=== PATIENT | female | born 1980 | race Caucasian/White ===

== ENCOUNTER 2016-11-02 10:28 | Emergency (ER) | payer OTHER ==
[~2016-11-02] VITALS: Ht 177.8 cm; Wt 136.7 kg
[~2016-11-02 10:28] MED LIST: CARB1CAP10 PO; CARB200T PO; CITA10TA8 PO; CLON1TAB3 PO; LISI-461 PO; METF500T5 PO; PRLSR20 PO; QUET1TAB32 PO; ZNTT/150 PO
[2016-11-02 10:35] VITALS: TEMP 37; Ht 177.8 cm; Wt 136.7 kg
--- NOTE | 2016-11-02 11:56 | DIAGNOSTIC IMAGING REPORT ---
CHEST 2 VIEWS ROUTINE CLINICAL HISTORY: cough eval for pnea cough. Dyspnea. COMPARISON STUDY: 12/12/2015 FINDINGS: Small parenchymal infiltrate versus atelectasis right midlung. Lungs otherwise appear clear. Diaphragms smooth. IMPRESSION: Subsegmental atelectasis versus a very small focal infiltrate right midlung. This chest film should be repeated later date to ensure complete resolution Electronically signed by: Edi Givens M.D. 11/02/2016 11:55 AM Dictated Date/Time: 11/02/2016 11:54 AM
[2016-11-02] MEDS ORDERED: DOXY100C2 PO (12:16)
[2016-11-02] MEDS ORDERED: BENZ100C84 PO (12:16)
[2016-11-02 12:24] VITALS: BP 128/78; PULSE 88; O2SAT 97
--- NOTE | 2016-11-02 16:27 | EMERGENCY ROOM VISIT NOTE ---
History Report prepared by Harpreet: Reji Osorio Under the Supervision of: Dr. Lee Murillo M.D. First contact with patient: 10:54 Chief Complaint: COUGH Stated Complaint: COUGH X 2 DAYS Nursing Triage Summary: cough for two days. History of Present Illness The patient is a 36 year old female who presents to the Emergency Room with complaints of a persistent illness that started 2 and a half days ago. She states that she is spitting up mucous and has a cough. The patient says she has sinus congestion and her nose is starting to run. She denies any fevers, chest pain, or shortness of breath. The patient did not take her hypertension medication today. She says that she has no chance of . The patient notes that her mother is sick, and the patient thinks that she initially got her mother sick, and now her mother has gotten the patient sick again. She does smoke cigarettes. Source of History: patient Onset: 2 and a half days Position: other (global - illness) Timing: other (persistent) Associated Symptoms: + cough, No SOB, No chest pain, No fevers Note: Associated symptoms: Spitting up mucous. Runny nose, sinus congestion. Review of Systems See HPI for pertinent positives & negatives. A total of 10 systems reviewed and were otherwise negative. Past Medical & Surgical Medical Problems: (1) Anxiety State Nos (2) Asthma W/O Status Asthm (3) Asthma, Unspecified (4) Bipolar Disorder, Unspecified (5) Depressive Disorder Nec (6) Drug Abuse Nec-Contin (7) Fem Pelvic Periton Adh-Post-Op/Inf (8) Morbid Obesity (9) Ovarian Cyst Nec/Nos (10) Suicide-Drug/Medicin Nec (11) Tobacco Use Disorder Social History Problems: (1) Suicide/Self-Injury Nos Family History Blood clots Social History Smoking Status: Current Every Day Smoker Alcohol Use: none Drug Use: none Marital Status: single Occupation Status: unemployed Current/Historical Medications Scheduled Carbamazepine (Tegretol), 200 MG PO QAM Carbamazepine Extended Release (Tegretol Xr), 100 MG PO QPM Citalopram Hydrobromide (Celexa), 10 MG PO QAM Clonazepam (Klonopin), 1 MG PO TID Doxycycline Hyclate (Vibramycin), 100 MG PO BID Lisinopril (Zestril), 10 MG PO QAM Metformin Hcl Er (Glucophage Er), 500 MG PO QAM Omeprazole (Prilosec), 20 MG PO HS Quetiapine Fumarate (Seroquel), 50 MG PO HS Ranitidine (Zantac), 150 MG PO BID Scheduled PRN Benzonatate (Tessalon Perles), 200 MG PO Q8 PRN for Cough Allergies Coded Allergies: Adhesives (Verified Allergy, Unknown, RASH, 11/02/16) Lorazepam (Verified Adverse Reaction, Mild, HALLUCINATIONS, 11/02/16) Diclofenac (Unverified Adverse Reaction, Unknown, heartburn, 11/02/16) Physical Exam Vital Signs Date Time Temp Pulse Resp B/P Pulse Ox O2 Delivery O2 Flow Rate FiO2 11/02/16 12:24 88 20 128/78 97 11/02/16 10:52 97 Room Air 11/02/16 10:35 37.0 95 20 159/113 97 Room Air Physical Exam Constitutional: Vital signs reviewed. Eyes: Pupils are equal round reactive to light. Conjunctiva are noninjected. ENT: Pharynx is clear without erythema or exudate. Mucous membranes are moist. Neck supple without meningeal signs. Respiratory: Clear to auscultation bilaterally. Breath sounds are equal bilaterally. Coughing. Cardiovascular: Regular rate and rhythm. No rubs or gallops. GI: Soft, nondistended and nontender. Bowel sounds are present. Musculoskeletal: No peripheral edema. No lower extremity tenderness. Integumentary: No cyanosis. Neurological: The patient is awake and alert. No focal deficits. Psychiatric: Normal affect. Medical Decision & Procedures ER Provider Diagnostic Interpretation: X-ray results as stated below per interpretation by me and the radiologist: CHEST 2 VIEWS ROUTINE CLINICAL HISTORY: cough eval for pnea cough. Dyspnea. COMPARISON STUDY: 12/12/2015 FINDINGS: Small parenchymal infiltrate versus atelectasis right midlung. Lungs otherwise appear clear. Diaphragms smooth. IMPRESSION: Subsegmental atelectasis versus a very small focal infiltrate right midlung. This chest film should be repeated later date to ensure complete resolution Electronically signed by: Edi Givens M.D. 11/02/2016 11:55 AM Dictated Date/Time: 11/02/2016 11:54 AM ED Course 1056: The patient was evaluated in room B8. A complete history and physical exam was performed. 1213: I reevaluated the patient and she is resting comfortably. I discussed the test results with her. The patient verbally expressed understanding and agreement of the treatment plan. The patient will be discharged. Medical Decision This is a 36-year-old female who presents with cough. Differential diagnosis includes URI, bronchitis, pneumonia. I did perform a limited focused review of portions of the patient's old chart on the electronic medical record. The patient has had no recent pertinent visits to this hospital. I did evaluate the patient as noted above. The patient is hypertensive but she states she did not take her medications today. She will take them when she gets home. I did order and personally review the patient's chest x-ray as described above. She does have a potential infiltrate versus atelectasis in the right upper lobe. The patient is a smoker and has complained of productive cough with fever. I did therefore recommend antibiotic treatment. I did discuss the test results with her. She was given a prescription for Tessalon Perles and doxycycline. She was advised follow up with her doctor. Impression Primary Impression: Pneumonia involving right lung Additional Impression: Hypertension Scribe Attestation The scribe's documentation has been prepared under my direct and personally reviewed by me in its entirety. I confirm that the note above accurately reflects all work, treatment, procedures, and medical decision making performed by me. Departure Information Dispostion Home / Self-Care Prescriptions Benzonatate (Tessalon Perles) 100 Mg Cap 200 MG PO Q8 Y for Cough, #20 CAP Prov: Lee Murillo M.D. 11/02/16 Doxycycline Hyclate (VIBRAMYCIN) 100 Mg Cap 100 MG PO BID for 10 Days, #20 CAP Prov: Lee Murillo M.D. 11/02/16 Referrals Dwight Obando M.D. (MEDICAL) (PCP) Forms HOME CARE DOCUMENTATION FORM, IMPORTANT VISIT INFORMATION, Work Instructions Patient Instructions My [facility], Pneumonia Dc Additional Instructions You have been examined and treated today on an emergency basis only. This is not a substitute for, or an effort to provide, complete comprehensive medical care. It is impossible to recognize and treat all injuries or illnesses in a single emergency department visit. It is therefore important that you follow up closely with your physician. Call as soon as possible for an appointment. Return for worsening symptoms or if you develop fever, vomiting, chest pain, shortness of breath or any other concerning symptoms. Problem Qualifiers Primary Impression: Pneumonia involving right lung Pneumonia type: due to unspecified organism Lung location: middle lobe of lung Qualified Codes: J18.1 - Lobar pneumonia, unspecified organism Additional Impression:
== END 2016-11-02 12:26 | disposition home or self-care (01) ==
LOC: C.EDB 10:29
DX: J18.1 Lobar pneumonia, unspecified organism (principal); F17.200 Nicotine dependence, unspecified, uncomplicated; F41.9 Anxiety disorder, unspecified; J45.909 Unspecified asthma, uncomplicated; F31.9 Bipolar disorder, unspecified

== ENCOUNTER → 2016-11-18 | Day surgery (SDC) | payer OTHER ==
[2016-10-31 12:53] VITALS: BMI 44.0
[2016-11-11 07:45] VITALS: Ht 175.3 cm; Wt 137.3 kg
[~2016-11-18] VITALS: Ht 175.3 cm; Wt 137.3 kg
[~2016-11-18] MED LIST changes: +BENZ100C84 PO; +DOXY100C2 PO; +LIDOCAINE HCL 2% 2 ML VIAL (20MG/ML) ONE; +MIDAZOLAM HCL 1 MG/ML 2ML VIAL ONE; +PROPOFOL IV EMULSION 10 MG/ML 20 ML VIAL IV ONE; +SODIUM CHLORIDE 0.9% 500ML 500 ML IV ONE
--- NOTE | 2016-11-18 11:08 | Endo History and Physical ---
History & Physical Date of Service: Nov 18, 2016. Chief Complaint: gastritis,esophagitis Referring Physician: Dr. Matt Obando History of Present Illness Epigastric pain, heartburn; incomplete relief from PPI Past Medical History Diabetes, Arthritis, Anxiety, Reflux, Hypertension, Depression Past Surgical History Hx Cardiac Surgery: No Hx Internal Defibrillator: No Hx Pacemaker: No Hx Abdominal Surgery: Yes (OVARIAN CYST REMOVAL) Hx of Implantable Prosthesis: No Hx Post-Op Nausea and Vomiting: No Hx Cancer Surgery: No Hx Thoracic Surgery: No Hx Orthopedic: Yes (L KNEE SCOPE/SURG X 5,RT FOOT HAMMERTOES, RT SHOULER ARTHROSCOPY) Hx Urinary Tract Surgery: No Family History IBD Social History Smoking Status: Current Every Day Smoker Hx Substance Use: No Hx Alcohol Use: Yes Allergies Coded Allergies: Adhesives (Verified Allergy, Unknown, RASH, 11/02/16) Lorazepam (Verified Adverse Reaction, Mild, HALLUCINATIONS, 11/02/16) Diclofenac (Verified Adverse Reaction, Unknown, heartburn, 11/18/16) Current Medications Reported Home Medications Medications Dose Route/Sig Max Daily Dose Days Date Category Tessalon Perles (Benzonatate) 100 Mg Cap 200 Mg PO Q8 PRN 11/02/16 Rx Prilosec (Omeprazole) 20 Mg Capcr 20 Mg PO HS 10/31/16 Reported Zantac (Ranitidine HCl) 150 Mg Tab 150 Mg PO BID 10/31/16 Reported Celexa (Citalopram Hydrobromide) 10 Mg Tab 10 Mg PO QAM 12/12/15 Reported Tegretol Xr (Carbamazepine) 100 Mg Tabcr 100 Mg PO QPM 12/12/15 Reported Tegretol (Carbamazepine) 200 Mg Tab 200 Mg PO QAM 12/12/15 Reported Seroquel (Quetiapine Fumarate) 50 Mg Tab 50 Mg PO HS 12/12/15 Reported Glucophage Er (Metformin HCl) 500 Mg Tab 500 Mg PO QAM 12/12/15 Reported Klonopin (Clonazepam) 1 Mg Tab 1 Mg PO TID 01/16/14 Reported Zestril (Lisinopril) 10 Mg Tab 10 Mg PO QAM 01/16/14 Reported Vital Signs Weight (Kilograms): 137.27 Height (Feet): 5 Height (Inches): 9 Date Time Temp Pulse Resp B/P Pulse Ox O2 Delivery O2 Flow Rate FiO2 11/18/16 10:45 36.7 94 20 161/87 99 Room Air Physical Exam General Appearance: WD/WN, no apparent distress, + obese Respiratory/Chest: Auscultation: breath sounds normal, no wheezing Cardiovascular: Heart Auscultation: RRR, no murmurs Abdomen: Inspection & Palpation: soft, no tenderness, guarding & rebound Assessment and Plan EGD today.
--- NOTE | 2016-11-18 11:40 | GI REPORT ---
Procedure Date: 11/18/2016 11:06 AM Procedure: Upper GI endoscopy Indications: Heartburn Medicines: Monitored Anesthesia Care Complications: No immediate complications. Estimated blood loss: None. Estimated Blood Loss: Estimated blood loss: none. Procedure: Pre-Anesthesia Assessment: - Prior to the procedure, a History and Physical was performed, and patient medications, allergies and sensitivities were reviewed. The patient's tolerance of previous anesthesia was reviewed. - ASA Grade Assessment: III - A patient with severe systemic disease. After obtaining informed consent, the endoscope was passed under direct vision. Throughout the procedure, the patient's blood pressure, pulse, and oxygen saturations were monitored continuously. The scope was introduced through the mouth, and advanced to the third part of duodenum. The upper GI endoscopy was accomplished with ease. The patient tolerated the procedure well. Findings: The upper third of the esophagus, middle third of the esophagus and lower third of the esophagus were normal. The Z-line was regular and was found 42 cm from the incisors. Biopsies were taken with a cold forceps for histology. The entire examined stomach was normal. Biopsies were taken with a cold forceps for Helicobacter pylori testing. The examined duodenum was normal. Verification of patient identification for the specimens was done by the physician and nurse using the patient's name, date and medical record number. Impression: - Normal upper third of esophagus, middle third of esophagus and lower third of esophagus. - Z-line regular, 42 cm from the incisors. Biopsied. - Normal stomach. Biopsied. - Normal examined duodenum. Recommendation: - Await pathology results. - Discharge patient to home (with escort). Patric Lo M.D. Patric Lo MD 11/18/2016 11:40:20 AM This report has been signed electronically. Note Initiated On: 11/18/2016 11:06 AM I attest to the content of the Intraoperative Record and orders documented therein, exceptions below
--- NOTE | 2016-11-18 11:40 | Discharge Instructions ---
Endoscopy Patient Instructions Date / Procedure(s) Performed Nov 18, 2016. EGD Allergy Information Coded Allergies: Adhesives (Verified Allergy, Unknown, RASH, 11/02/16) Lorazepam (Verified Adverse Reaction, Mild, HALLUCINATIONS, 11/02/16) Diclofenac (Verified Adverse Reaction, Unknown, heartburn, 11/18/16) Discharge Date / Findings Nov 18, 2016. Normal endoscopic examination, biopsies pending. Medication Instructions Restart Stopped Medication(s): Restart all medications today. Provider Instructions Activity Restrictions - No exercising or heavy lifting for 24 hours. - Do not drink alcohol the day of the procedure. - Do not drive a car or operate machinery until the day after the procedure. - Do not make any important decisions or sign important papers in 24 hours after the procedure. Following Day: - Return to full activity which may include returning to work/school. Diet Start your diet with liquids and light foods (jello, soup, juice, toast). Then eat your usual diet if not nauseated. Treatment For Common After Affects For mild abdominal pain, bloating, or excessive gas: - Rest - Eat lightly - Lie on right side Follow-Up Information Follow-up with Dr. Matt Obando as scheduled Anesthesia Information What You Should Know You have had a procedure that required some medicine to reduce anxiety and discomfort. This treatment is called moderate sedation. After receiving the treatment, you may be sleepy, but you will be able to breathe on your own. The effects of the treatment may last for several hours. Follow these instructions along with Activity/Diet recommendations noted above: * Do NOT do anything where dizziness or clumsiness would be dangerous. * Rest quietly at home today, then you can be up and about tomorrow. * Have a responsible person stay with you the rest of today. * You may have had an I.V. today. If so, you may take the dressing off later today. Recommendations Call your doctor if: * Trouble breathing * Continuous vomiting for more than 24 hours * Temperature above 101 degrees * Severe abdominal pain or bloating * Pain not relieved by pain medicine ordered * There is increased drainage or redness from any incision * A large amount of rectal bleeding greater than 2-3 tablespoons. (If you had a polyp/s removed or have hemorrhoids, a small amount of blood - from the rectum is to be expected.) * You have any unanswered questions or concerns. IN THE EVENT OF A SERIOUS EMERGENCY, GO TO THE NEAREST EMERGENCY ROOM Your discharge instructions were prepared by provider Patric Lo. Patient Instructions Signature Page Geno Nielsen Patient (or Guardian) Signature/Date: I have read and understand the instructions given to me by my caregivers. Caregiver/RN/Doctor Signature/Date: The above-named patient and/or guardian has received patient instructions on this date. + Original Patient Signature Page (only) stays with chart. Please make copy for patient.
[2016-11-18 11:48] VITALS: BP 133/90; PULSE 83; O2SAT 98
--- NOTE | 2016-11-18 14:34 | Anesthesiology Progress Note ---
Anesthesia Post Op Note Date & Time Nov 18, 2016 at 14:34 Vital Signs Pain Intensity: 0 Vital Signs Past 12 Hours Date Time Temp Pulse Resp B/P Pulse Ox O2 Delivery O2 Flow Rate FiO2 11/18/16 11:48 83 20 133/90 98 Room Air 11/18/16 11:34 94 20 133/84 98 Room Air 11/18/16 10:45 36.7 94 20 161/87 99 Room Air Notes Mental Status: alert / awake / arousable, participated in evaluation Pt Amnestic to Procedure: Yes Nausea / Vomiting: adequately controlled Pain: adequately controlled Airway Patency, RR, SpO2: stable & adequate BP & HR: stable & adequate Hydration State: stable & adequate Anesthetic Complications: no major complications apparent
== END | disposition home or self-care (01) ==
LOC: C.GI 10:14
PROVIDERS: ATTEND Internal Medicine Gastroenterology
DX: K29.50 Unspecified chronic gastritis without bleeding (principal); K20.9 Esophagitis, unspecified; E66.01 Morbid (severe) obesity due to excess calories; E11.9 Type 2 diabetes mellitus without complications; I10 Essential (primary) hypertension; M19.90 Unspecified osteoarthritis, unspecified site; F31.9 Bipolar disorder, unspecified; F41.9 Anxiety disorder, unspecified; F17.200 Nicotine dependence, unspecified, uncomplicated; Z98.890 Other specified postprocedural states; Z68.42 Body mass index [BMI] 45.0-49.9, adult

== ENCOUNTER 2017-06-21 12:08 | Emergency (ER) | payer OTHER ==
[~2017-06-21] VITALS: Ht 177.8 cm; Wt 133.5 kg
[~2017-06-21 12:08] MED LIST changes: -BENZ100C84 PO; -DOXY100C2 PO; -LIDOCAINE HCL 2% 2 ML VIAL (20MG/ML) ONE; -MIDAZOLAM HCL 1 MG/ML 2ML VIAL ONE; -PROPOFOL IV EMULSION 10 MG/ML 20 ML VIAL IV ONE; -SODIUM CHLORIDE 0.9% 500ML 500 ML IV ONE
[2017-06-21 12:30] VITALS: TEMP 36.9; Ht 177.8 cm; Wt 133.5 kg
[2017-06-21] MEDS ORDERED: ALBUT/IPRATROP 3MG/0.5MG NEB 3 ML VIAL INH STA (13:00)
[2017-06-21] MEDS ORDERED: BENZONATATE 100MG CAP PO ONE (13:00)
[2017-06-21] MEDS ORDERED: IBUPROFEN 600 MG TAB PO STA (13:00)
[2017-06-21] MEDS ORDERED: ACETAMINOPHEN 500 MG TAB PO STA (13:00)
--- NOTE | 2017-06-21 13:23 | EMERGENCY ROOM VISIT NOTE ---
History Report prepared by Harpreet: Kendrick Burnett Under the Supervision of: Dr. Jose De La Torre M.D. First contact with patient: 12:53 Chief Complaint: COUGH Stated Complaint: COUGH, SORE THROAT, SOB History of Present Illness The patient is a 36 year old female who presents to the Emergency Room with complaints of a worsening cough that began four days ago. She states that at this time she was spending the night with her ex-boyfriend when he coughed straight onto her face. Since then, her symptoms have worsened. She is experiencing intermittent sputum production, a sore throat, and shortness of breath. She denies any fevers, congestion, or rhinorrhea. She denies any history of asthma or COPD. She was diagnosed with pneumonia earlier this year. Source of History: patient Onset: four days ago Position: other (Respiratory system) Symptom Intensity: moderate Quality: other (Cough) Timing: worsening Associated Symptoms: + sorethroat, + SOB, No fevers Note: She denies any congestion or rhinorrhea. Review of Systems See HPI for pertinent positives & negatives. A total of 10 systems reviewed and were otherwise negative. Past Medical & Surgical Medical Problems: (1) Anxiety State Nos (2) Asthma W/O Status Asthm (3) Asthma, Unspecified (4) Bipolar Disorder, Unspecified (5) Depressive Disorder Nec (6) Drug Abuse Nec-Contin (7) Fem Pelvic Periton Adh-Post-Op/Inf (8) Morbid Obesity (9) Ovarian Cyst Nec/Nos (10) Suicide-Drug/Medicin Nec (11) Tobacco Use Disorder Social History Problems: (1) Suicide/Self-Injury Nos Family History Blood clots Social History Smoking Status: Never Smoker Alcohol Use: none Drug Use: none Marital Status: single Occupation Status: unemployed Current/Historical Medications Scheduled Albuterol Hfa (Ventolin Hfa), 3 PUFFS INH Q6H Benzonatate (Tessalon Perles), 1 CAP PO TID Carbamazepine (Tegretol), 200 MG PO QAM Carbamazepine Extended Release (Tegretol Xr), 100 MG PO QPM Citalopram Hydrobromide (Celexa), 10 MG PO QAM Clonazepam (Klonopin), 1 MG PO HS Lisinopril (Zestril), 10 MG PO QAM Metformin Hcl Er (Glucophage Er), 500 MG PO QAM Omeprazole (Prilosec), 20 MG PO HS Prednisone (Prednisone), 0 PO DAILY Quetiapine Fumarate (Seroquel), 50 MG PO HS Ranitidine (Zantac), 150 MG PO BID Allergies Coded Allergies: Adhesives (Verified Allergy, Unknown, RASH, 06/21/17) Lorazepam (Verified Adverse Reaction, Mild, HALLUCINATIONS, 06/21/17) Diclofenac (Verified Adverse Reaction, Unknown, heartburn, 06/21/17) Physical Exam Vital Signs Date Time Temp Pulse Resp B/P (MAP) Pulse Ox O2 Delivery O2 Flow Rate FiO2 06/21/17 14:42 112 16 164/94 95 06/21/17 14:08 112 16 95 Room Air 06/21/17 13:15 93 Room Air 06/21/17 12:30 36.9 112 22 166/93 96 Room Air Physical Exam GENERAL: Patient is in no acute distress. HEENT: No acute trauma, normocephalic atraumatic, mucous membranes moist, no nasal congestion, no scleral icterus. No throat erythema or exudate. NECK: No stridor, no adenopathy, no meningismus, trachea is midline. LUNGS: Decreased breath sounds bilaterally. Sounds are equal bilaterally. Wheezing bilaterally with auscultation. Dry cough noted. HEART: Without murmurs gallops or rubs, regular rate and rhythm. ABDOMEN: Soft, nontender, bowel sounds positive, no hernias, no peritonitis. EXTREMITIES: No cyanosis or edema, full range of motion of all the joints without pain or difficulty, no signs for acute trauma. NEUROLOGIC: Oriented x 3, no acute motor or sensory deficits, no focal weakness. SKIN: No rash, no jaundice, no diaphoresis. Medical Decision & Procedures ER Provider Diagnostic Interpretation: Radiology results as stated below per my review and radiologist interpretation: CHEST ONE VIEW PORTABLE CLINICAL HISTORY: Cough, shortness of breath, sore throat. COMPARISON STUDY: 11/02/2016 FINDINGS: The cardiac and mediastinal contours are normal. There is no evidence of focal pulmonary consolidation. There is no evidence of failure. No pleural effusions are visualized.[ The previous identified right midlung zone opacity has resolved IMPRESSION: No active disease in the chest. Electronically signed by: Jacky Wheat M.D. 06/21/2017 1:23 PM Dictated Date/Time: 06/21/2017 1:23 PM Medications Administered Medications (Trade) Dose Ordered Sig/Tu Route Start Time Stop Time Status Last Admin Dose Admin Benzonatate (Tessalon Perles Cap) 100 mg NOW ONCE PO 06/21/17 13:00 06/21/17 13:03 DC 06/21/17 13:12 100 MG Albuterol/ Ipratropium (Duoneb) 3 ml NOW STAT INH 06/21/17 13:00 06/21/17 13:03 DC 06/21/17 13:13 3 ML Prednisone (PredniSONE TAB) 60 mg NOW STAT PO 06/21/17 13:00 06/21/17 13:03 DC 06/21/17 13:12 60 MG Ibuprofen (Motrin Tab) 600 mg NOW STAT PO 06/21/17 13:00 06/21/17 13:03 DC 06/21/17 13:13 600 MG Acetaminophen (Tylenol Tab) 1,000 mg NOW STAT PO 06/21/17 13:00 06/21/17 13:03 DC 06/21/17 13:12 1,000 MG Albuterol (Ventolin Hfa Inhaler) 2 puffs NOW ONCE INH 06/21/17 13:45 06/21/17 13:46 DC 06/21/17 13:45 2 PUFFS ED Course 1253: The patient was evaluated in room A4. A complete history and physical exam was performed. 1300: Ordered Tylenol Tab 1000 mg PO, Motrin Tab 600 mg PO, Prednisone Tab 60 mg PO, DuoNeb 3 ml INH, Benzonatate 100 mg PO 1345: Ordered Albuterol 2 puffs INH 1410: Reevaluated the patient. Discussed results and discharge instructions: She verbalized understanding and agreement. The patient is ready for discharge. Medical Decision Differential diagnosis includes but is not limited to bronchitis, pneumonia, pneumothorax, viral illness, heart failure, and sinusitis. The patient presents with a cough and some wheezing. On exam, she appeared to have at least a bronchitis, possibly a pneumonia. A chest film was done, no pneumonia was seen, no pneumothorax or CHF. The patient was not hypoxic or toxic upon arrival. Patient was given a DuoNeb, oral Tylenol, oral Motrin, a Tessalon Perle, oral prednisone. She received albuterol via [facility]. The patient has an acute bronchitis. She is being discharged on prednisone and albuterol, Tessalon Perles for cough. If worsening, she can return. She was stable for discharge home. Medication Reconcilliation Current Medication List: was personally reviewed by me Blood Pressure Screening Patient's blood pressure: Elevated blood pressure Blood pressure disposition: Referred to PCP Impression Primary Impression: Acute bronchitis Additional Impression: Cough Scribe Attestation The scribe's documentation has been prepared under my direction and personally reviewed by me in its entirety. I confirm that the note above accurately reflects all work, treatment, procedures, and medical decision making performed by me. Departure Information Dispostion Home / Self-Care Prescriptions Benzonatate (Tessalon Perles) 100 Mg Cap 1 CAP PO TID for 10 Days, #30 CAP Prov: Jose De La Torre M.D. 06/21/17 Albuterol Hfa (VENTOLIN HFA) 200 Puffs/31408 Mcg Aers 3 PUFFS INH Q6H, #1 INHALER Prov: Jose De La Torre M.D. 06/21/17 Prednisone (Prednisone) 20 Mg Tab 0 PO DAILY, #14 TAB 3 TABS DAILY FOR 2 DAYS, THEN 2 TABS DAILY FOR 2 DAYS, THEN 1 TAB DAILY FOR 2 DAYS, THEN 1/2 TAB DAILY FOR 2 DAYS. Prov: Jose De La Torre M.D. 06/21/17 Referrals Dwight Obando M.D. (MEDICAL) (PCP) Forms HOME CARE DOCUMENTATION FORM, IMPORTANT VISIT INFORMATION Patient Instructions My [facility] Additional Instructions tessalon perles 1 tab 3x per day for cough albuterol 3 puffs every 4 hours fluids rest prednisone as directed return if worsening see meri jacinto this week for a recheck Problem Qualifiers Primary Impression: Acute bronchitis Bronchitis organism: unspecified organism Qualified Codes: J20.9 - Acute bronchitis, unspecified
[2017-06-21] MEDS ORDERED: ALBUTEROL HFA 8 GM INHALER INH ONE (13:45)
[2017-06-21] MEDS ORDERED: VNTHFA/IN INH (14:18)
[2017-06-21] MEDS ORDERED: BENZ100C84 PO (14:18)
[2017-06-21] MEDS ORDERED: PRED20TA PO (14:18)
[2017-06-21 14:42] VITALS: BP 164/94; PULSE 112; O2SAT 95
== END 2017-06-21 14:43 | disposition home or self-care (01) ==
LOC: C.EDB 12:09 → C.EDA 14:43
DX: J20.9 Acute bronchitis, unspecified (principal); R05 Cough; F41.9 Anxiety disorder, unspecified; J45.909 Unspecified asthma, uncomplicated; F31.9 Bipolar disorder, unspecified; F32.9 Major depressive disorder, single episode, unspecified; E66.01 Morbid (severe) obesity due to excess calories; N83.209 Unspecified ovarian cyst, unspecified side; F17.200 Nicotine dependence, unspecified, uncomplicated; Z91.5 Personal history of self-harm; Z83.2 Family history of diseases of the blood and blood-forming organs and certain disorders involving the immune mechanism

== ENCOUNTER 2017-12-23 10:06 | Emergency (ER) | payer OTHER ==
[~2017-12-23] VITALS: Ht 176.5 cm; Wt 130.7 kg
[~2017-12-23 10:06] MED LIST changes: +RANI150T85 PO; -ZNTT/150 PO
[2017-12-23 10:16] VITALS: TEMP 36.6; Ht 176.5 cm; Wt 130.7 kg
[2017-12-23] MEDS ORDERED: IBUPROFEN 600 MG TAB PO STA (10:41)
[2017-12-23] MEDS ORDERED: CARB100C2 PO (11:47)
--- NOTE | 2017-12-23 11:51 | DIAGNOSTIC IMAGING REPORT ---
LEFT KNEE 3 VIEWS CLINICAL HISTORY: Fall with left knee pain. FINDINGS: AP, crosstable lateral, and sunrise views of the left knee are compared to study dated 06/17/2013. The skeletal structures are well mineralized. No fracture is seen. The joint spaces are maintained. Screw tracts are noted in the proximal tibia. Prepatellar soft tissue swelling is noted. A small joint effusion is identified. IMPRESSION: Soft tissue swelling and small joint effusion. There is no radiographic evidence of left knee fracture. Electronically signed by: Jose De Santiago M.D. 12/23/2017 11:49 AM Dictated Date/Time: 12/23/2017 11:48 AM
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
[2017-12-23 12:20] VITALS: BP 153/99; PULSE 86; O2SAT 98
== END 2017-12-23 12:20 | disposition home or self-care (01) ==
LOC: C.EDB 10:07
DX: M25.562 Pain in left knee (principal); W17.89XA Other fall from one level to another, initial encounter; Y93.01 Activity, walking, marching and hiking; Y99.8 Other external cause status; F17.200 Nicotine dependence, unspecified, uncomplicated; J45.909 Unspecified asthma, uncomplicated; E11.9 Type 2 diabetes mellitus without complications; I10 Essential (primary) hypertension; F31.9 Bipolar disorder, unspecified; K21.9 Gastro-esophageal reflux disease without esophagitis; Z87.01 Personal history of pneumonia (recurrent); Z98.890 Other specified postprocedural states; Z91.09 Other allergy status, other than to drugs and biological substances; Z88.8 Allergy status to other drugs, medicaments and biological substances; Z88.6 Allergy status to analgesic agent; Z79.84 Long term (current) use of oral hypoglycemic drugs; Z79.899 Other long term (current) drug therapy